=== PATIENT | female | born 1940 | race Caucasian/White ===

== ENCOUNTER 2024-05-02 15:49 | Inpatient (IN) ==
--- NOTE | 2024-05-02 16:45 | XRay Report ---
Clinical History: Pain. 4 views of the pelvis and right hip are submitted for review. Findings: There is an acute mildly displaced intertrochanteric fracture of the right femoral neck. No subluxation or dislocation is seen. No significant arthritic changes are noted. No other osseous abnormality is identified. There are no radiopaque foreign bodies. Impression: Right femoral neck fracture Electronically signed by Florian Child 05-02-2024 4:45 PM
--- NOTE | 2024-05-02 17:21 | Emergency Department Note ---
ED Provider Note History of Present Illness Chief Complaint: Fall Stated Complaint: FALL, HIP PAIN Time Seen by Provider: 05/02/24 16:04 Source: patient Mode of arrival: EMS Limitations: no limitations This patient is an 83-year-old female who presents to the emergency department for evaluation of a fall and right hip pain. Patient states that she was cleaning and tripped over a lamp cord and fell onto her right hip. She reports right hip pain and is unable to walk on it. She did not strike her head. She denies any other injuries. She does not take any anticoagulants. She reports she has had a prior right knee replacement. Home Medications Medication Instructions Recorded Confirmed Type amlodipine 5 mg tablet 5 mg PO DAILY 05/02/24 05/02/24 History rosuvastatin 5 mg tablet 5 mg PO 2XWK 05/02/24 05/02/24 History thyroid (pork) 90 mg tablet ([employer] 90 mg PO DAILY 05/02/24 05/02/24 History Thyroid) Allergies Allergy/AdvReac Type Severity Reaction Status Date / Time Opioids - Morphine Analogues AdvReac Nausea Verified 05/02/24 18:10 Past Med/Surg History Problem List (Updated 05/03/24 @ 00:36 by Ibeth Martin PA-C) Closed right hip fracture (Acute) Roderick thyroiditis Paroxysmal atrial fibrillation Hypertension Surgical History History of total right knee replacement (TKR) Social History Smoking Status: Never smoker Preferred Language: Albanian Feels Safe at Home: Yes Physical Exam Vital Signs Vital Signs - 24 hr 05/02/24 15:50 05/02/24 16:19 05/02/24 19:14 Temperature 36.6 C Temperature Source Oral Pulse Rate 68 77 Pulse Rate [Apical] 69 Pulse Rhythm [Apical] Regular Pulse Strength [Apical] Normal Respiratory Rate 16 18 Respiratory Effort / Characteristics Non-Labored Respiratory Depth Normal Respiratory Pattern Regular Blood Pressure 191/83 H Blood Pressure [Left Arm] 138/79 Blood Pressure Mean 119 Blood Pressure Mean [Left Arm] 98 Blood Pressure Position Semi-fowlers Blood Pressure Position [Left Arm] Sitting Pulse Oximetry 96 94 Oxygen Delivery Method Room Air Room Air Sepsis Recent Fever Within 48 Hours No Sepsis New/Unexplained Change in Mental Status No Sepsis Action Taken by Nursing No Action Required VITALS: Vitals are noted on the nurse's note and reviewed by myself. GENERAL: This is an 83-year-old female, in no acute distress but slightly anxious appearing. SKIN: The skin was without rashes, erythema, edema, or bruising. HEAD: Normocephalic atraumatic. EARS: External auditory canals clear, tympanic membranes pearly gibson without erythema or effusion bilaterally. No hemotympanum. EYES: Pupils equal round and reactive to light and accommodation. Extraocular movements intact. NOSE: Patent, turbinates without inflammation or discharge. No sinus tenderness. MOUTH: Mucous membranes moist. No loose or chipped teeth. NECK: Supple without nuchal rigidity. Cervical spine is nontender. MUSCULOSKELETAL: There is tenderness to palpation to the right lateral and anterior hip. No tenderness of the knee. Mild tenderness of the right upper arm. NEURO: Patient was alert and oriented to person place and time. Sensation intact. Course Administered Medications Acetaminophen (Acetaminophen 500 Mg Tab) 1,000 mg PO Q8H [facility] Stop: 06/01/24 21:59 Last Admin: 05/02/24 22:30 Dose: 1,000 mg Documented By: CAROLYNE Hydromorphone HCl (Hydromorphone Inj 0.5 Mg/0.5 Ml Syr) 0.5 mg IV Q4H PRN PRN Reason: Pain 6+ Stop: 05/16/24 22:05 Last Admin: 05/02/24 22:30 Dose: 0.5 mg Documented By: CAROLYNE Lactated Ringer's (Lr) 1,000 mls @ 100 mls/hr IV .Q10H [facility] Stop: 05/03/24 18:59 Last Admin: 05/02/24 23:05 Dose: 100 mls/hr Documented By: CAROLYNE Magnesium Sulfate/Dextrose (Magnesium Sulfate / D5w) 1 gm in 100 mls @ 50 mls/hr IV Q2H [facility] Stop: 05/03/24 02:14 Last Admin: 05/02/24 23:06 Dose: 50 mls/hr Documented By: CAROLYNE Miscellaneous (Rosuvastatin~Order Awaiting Action) 1 each N/A QS [facility] Stop: 06/01/24 21:59 Last Admin: 05/02/24 23:07 Dose: Not Given Documented By: Admin: 05/02/24 23:05 Dose: Not Given Documented By: CAROLYNE Ondansetron HCl (Ondansetron Inj 2 Mg/Ml 2 Ml Vial) 4 mg IV Q6H PRN PRN Reason: Nausea And Vomiting Stop: 06/01/24 20:59 Last Admin: 05/02/24 22:30 Dose: 4 mg Documented By: CAROLYNE Discontinued Medications Acetaminophen (Ofirmev) 1,000 mg in 100 mls @ 400 mls/hr IV NOW STA Stop: 05/02/24 18:00 Last Infusion: 05/02/24 18:13 Dose: Infused Documented By: Admin: 05/02/24 17:49 Dose: 400 mls/hr Documented By: CEF Ibuprofen (Ibuprofen 600 Mg Tab) 600 mg PO NOW STA Stop: 05/02/24 20:44 Last Admin: 05/02/24 20:56 Dose: 600 mg Documented By: JAMEEL Medical Decision Making Differential Diagnosis Fracture, dislocation, neurovascular compromise, compartment syndrome, soft tissue injury, as well as other pathologies. Laboratory Data Attestation: I reviewed the patient's lab results. 05/02/24 17:05 05/02/24 17:05 Lab Results 05/02/24 05/02/24 Range/Units 17:05 17:20 WBC 8.14 (4.8-10.8) K/ul RBC 4.33 (4.20-5.40) M/uL Hgb 13.4 (12.0-16.0) g/dl Hct 39.8 (37.0-47.0) % MCV 91.9 (80.0-100.0) fL MCH 30.9 (25.0-34.0) pg MCHC 33.7 (32.0-36.0) g/dL RDW Std Deviation 42.8 (36.4-46.3) fL RDW Coeff of Lon 12.8 (11.5-14.5) % Plt Count 250 (130-400) K/uL MPV 10.1 (9.4-12.4) fL Immature Gran % (Auto) 0.4 % Neut % (Auto) 61.6 % Lymph % (Auto) 26.9 % [place] % (Auto) 9.0 % Eos % (Auto) 1.7 % Baso % (Auto) 0.4 % Neut # (Auto) 5.02 (1.40-6.50) K/uL Lymph # (Auto) 2.19 (1.20-3.40) K/uL [place] # (Auto) 0.73 H (0.11-0.59) K/uL Eos # (Auto) 0.14 (0.00-0.50) K/uL Baso # (Auto) 0.03 (0.00-0.20) K/uL Immature Gran # (Auto) 0.03 (0.01-0.20) K/uL PT 10.9 (9.0-12.0) Seconds INR 1.0 (0.9-1.1) APTT 27 (21-31) Seconds PTT Ratio 1.0 Sodium 141 (136-145) mmol/L Potassium 3.6 (3.5-5.1) mmol/L Chloride 105 (98-107) mmol/L Carbon Dioxide 28 (21-32) mmol/L Anion Gap 8 (3-11) BUN 20 (6-23) mg/dl Creatinine 0.72 (0.6-1.2) mg/dl Est Cr Clr Drug Dosing 61.6 ml/min eGFR 83.43 BUN/Creatinine Ratio 27.8 H (10-20) Glucose 96 (70-99(Fasting)) mg/dl Calcium 9.0 (8.6-10.3) mg/dl Total Bilirubin 0.6 (0.2-1.0) mg/dl AST 25 (13-39) U/L ALT 16 (7-52) U/L Alkaline Phosphatase 53 (34-104) U/L Total Protein 7.2 (6.0-8.3) gm/dl Albumin 4.2 (3.4-5.0) gm/dl Globulin 3.0 (2.5-4.0) gm/dl Albumin/Globulin Ratio 1.4 (0.9-2) Urine Color Colorless Urine Appearance Clear (Clear) Urine pH 7.5 (4.5-7.5) Ur Specific [place] 1.010 (1.000-1.030) Urine Protein Negative (Negative) Urine Glucose (UA) Negative (Negative) Urine Ketones Negative (Negative) Urine Blood Trace-intact H (Negative) Urine Nitrite Negative (Negative) Urine Bilirubin Negative (Negative) Urine Urobilinogen Negative (Negative) Ur Leukocyte Esterase Negative (Negative) Urine RBC 0-2 (0-2) /hpf Urine WBC 0-5 (0-5) /hpf Ur Epithelial Cells 0-2 (0-2) /hpf Urine Bacteria None Seen (None Seen) Hyaline Casts 0 (None Presnt) /lpf Imaging Data Attestation: I personally reviewed and interpreted this imaging study as follows: Radiologist's Impression: Hip/Pelvis X-Ray 05/02/24 16:18 Clinical History: Pain. 4 views of the pelvis and right hip are submitted for review. Findings: There is an acute mildly displaced intertrochanteric fracture of the right femoral neck. No subluxation or dislocation is seen. No significant arthritic changes are noted. No other osseous abnormality is identified. There are no radiopaque foreign bodies. Impression: Right femoral neck fracture Electronically signed by Florian Child 05-02-2024 4:45 PM Chest X-Ray 05/02/24 16:49 Chest radiograph, one view History: Chest pain Comparison: None Findings: Single AP view of the chest performed. No focal consolidation or pleural effusion. Thin focus of scar tissue in the mid right lung. No pneumothorax. The cardiomediastinal silhouette is within normal limits. Normal pulmonary vascularity. No evidence for lymphadenopathy. No visualized bony or soft tissue abnormality. Impression: Normal chest radiograph Electronically signed by Cresencio Alcaraz 05-02-2024 5:[address] 05/02/24 17:27 Clinical history: Injury Technique: Axial computed tomography images were obtained of the right hip without intravenous contrast. Sagittal and coronal reconstructions were obtained Findings: There is an acute comminuted fracture of the intertrochanteric portion of the right femoral neck with mild displacement of fracture fragments of up to 6 mm. No subluxation or dislocation is seen. 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 No focal osseous lesion is evident The visualized musculature appears unremarkable. No soft tissue mass or fluid collection is seen. No foreign body is evident Impression: Comminuted fracture of the right femoral neck Electronically signed by Florian Child 05-02-2024 7:[address] 05/02/24 17:46 Clinical History: Injury Technique: Axial computed tomography images were obtained of the cervical spine without intravenous contrast. Sagittal and coronal reconstructions were obtained Findings: No fracture is identified. No listhesis is seen. No focal osseous lesion is evident. There is atlantoaxial osteoarthritis At C2-3, no disc herniation is identified. There is no spinal stenosis. The neural foramen are patent At C3-4, no disc herniation is identified. There is no spinal stenosis. The neural foramen are patent At C4-5, no disc herniation is identified. There is no spinal stenosis. The neural foramen are patent At C5-6, no disc herniation is identified. There is no spinal stenosis. The neural foramen are patent At C6-7, there is mild spinal stenosis due to a disc bulge and a central disc protrusion. There is mild left neural foramen narrowing At C7-T1,no disc herniation is identified. There is no spinal stenosis. The neural foramen are patent The lung apices appear clear. The visualized soft tissues of the neck appear unremarkable. No foreign body is seen Impression: 1. No definite cervical spine fracture 2. Mild spinal stenosis at C6-7 Electronically signed by Florian Child 05-02-2024 7:[address] 05/02/24 17:46 Clinical History: Injury Technique: Axial computed tomography images were obtained of the brain without intravenous contrast. Findings: There is diffuse cerebral atrophy, within expected limits for the patient's age. Areas of decreased attenuation are seen within the periventricular white matter, likely representing chronic small vessel ischemic disease. There is no definite sign of acute or old infarction. No intracranial hemorrhage is evident. No definite mass lesion is seen on this noncontrast examination. There is no midline shift or other form of herniation. No hydrocephalus is seen. No fracture is identified. The orbits and the visualized paranasal sinuses appear unremarkable. The mastoid air cells appear clear. Impression: 1. Cerebral atrophy and chronic small vessel ischemic disease 2. Otherwise unremarkable noncontrast CT of the brain Electronically signed by Florian Child 05-02-2024 7:24 PM Humerus X-Ray 05/02/24 17:46 Clinical History: Pain. 2 views of the right humerus are submitted for review. Findings: No fracture or dislocation is seen. There is mild acromioclavicular and glenohumeral osteoarthritis. No other osseous abnormality is identified. There are no radiopaque foreign bodies. Impression: Mild osteoarthritis Electronically signed by Florian Child 05-02-2024 6:28 PM [facility] Narrative This patient is an 83-year-old female who presents to the emergency department for evaluation of a fall and right hip pain. Patient found to have a femoral neck fracture on x-ray. Additional imaging was performed as patient did begin to complain of some pain in the right neck and right upper arm. No other fractures were identified. Dr. Paige from orthopedics was consulted and requested a CT of the hip. This was ordered and performed. [facility] service was contacted for admission. Impression Closed right hip fracture Discharge Plan Visit Data Chief Complaint: Fall Stated Complaint: FALL, HIP PAIN ED Provider: Aditya Mccarthy ED Midlevel Provider: Ibeth Martin Discharge Problem: Closed right hip fracture Patient Disposition: Admitted As Inpatient Discharge Instructions Interventions: ED Discharge Assessment Last Done: 05/02/24 21:00
[2024-05-02 17:26] LABS: Basophils # (auto) 0.03 K/uL (0.00-0.20); Basophils % (auto) 0.4 %; Eosinophils # (auto) 0.14 K/uL (0.00-0.50); Eosinophils % (auto) 1.7 %; Hematocrit (blood only) 39.8 % (37.0-47.0); Hemoglobin 13.4 g/dl (12.0-16.0); Immature Granulocytes # (auto) 0.03 K/uL (0.01-0.20); Immature Granulocytes % (auto) 0.4 %; Lymphocytes # (auto) 2.19 K/uL (1.20-3.40); Lymphocytes % (auto) 26.9 %; Mean Corpuscular Hemoglobin 30.9 pg (25.0-34.0); Mean Corpuscular Hgb Conc 33.7 g/dL (32.0-36.0); Mean Corpuscular Volume 91.9 fL (80.0-100.0); Mean Platelet Volume 10.1 fL (9.4-12.4); Monocytes # (auto) 0.73 K/uL (0.11-0.59); Neutrophils # (auto) 5.02 K/uL (1.40-6.50); Neutrophils % (auto) 61.6 %; Platelet Count 250 K/uL (130-400); RDW Coefficient of Variation 12.8 % (11.5-14.5); RDW Standard Deviation 42.8 fL (36.4-46.3); Red Blood Count 4.33 M/uL (4.20-5.40); White Blood Count 8.14 K/ul (4.8-10.8)
[2024-05-02 17:40] LABS: Albumin Globulin Ratio 1.4 (0.9-2); Albumin Level 4.2 gm/dl (3.4-5.0); BUN Creatinine Ratio 27.8 (10-20); Bilirubin,Total 0.6 mg/dl (0.2-1.0); Creatinine Clr Calc Pharmacy 61.6 ml/min; Potassium 3.6 mmol/L (3.5-5.1); Total Protein 7.2 gm/dl (6.0-8.3)
--- NOTE | 2024-05-02 17:40 | XRay Report ---
Chest radiograph, one view History: Chest pain Comparison: None Findings: Single AP view of the chest performed. No focal consolidation or pleural effusion. Thin focus of scar tissue in the mid right lung. No pneumothorax. The cardiomediastinal silhouette is within normal limits. Normal pulmonary vascularity. No evidence for lymphadenopathy. No visualized bony or soft tissue abnormality. Impression: Normal chest radiograph Electronically signed by Cresencio Alcaraz 05-02-2024 5:39 PM
[2024-05-02] MEDS: ACETAMINOPHEN 1,000 MG/100 ML VIAL IV STA (17:49)
[2024-05-02 17:58] LABS: Partial Thromboplastin Time 27 Seconds (21-31); Prothrombin Time 10.9 Seconds (9.0-12.0)
[2024-05-02 18:21] LABS: Appearance Urine Clear (Clear); Bilirubin Urine Negative (Negative); Blood Urine Trace-intact (Negative); Color Urine Colorless; Glucose Urine UA Negative (Negative); Ketones Urine Negative (Negative); Leukocyte Esterase Urine Negative (Negative); Nitrite Urine Negative (Negative); Protein Urine Negative (Negative); Urobilinogen Urine Negative (Negative); pH Urine 7.5 (4.5-7.5)
--- NOTE | 2024-05-02 18:28 | XRay Report ---
Clinical History: Pain. 2 views of the right humerus are submitted for review. Findings: No fracture or dislocation is seen. There is mild acromioclavicular and glenohumeral osteoarthritis. No other osseous abnormality is identified. There are no radiopaque foreign bodies. Impression: Mild osteoarthritis Electronically signed by Florian Child 05-02-2024 6:28 PM
[2024-05-02 18:44] LABS: Bacteria Urine None Seen (None Seen); Epithelial Cell Urine 0-2 /hpf (0-2); Hyaline Casts Urine 0 /lpf (None Presnt); RBC Urine 0-2 /hpf (0-2); WBC Urine 0-5 /hpf (0-5)
--- NOTE | 2024-05-02 18:49 | Emergency Department Note ---
ED Visit Note I was consulted by the Advanced Practice Provider. I personally made or approved the management plan for the patient. I performed a substantive portion of the visit. This includes the aspects of: MDM. .
--- NOTE | 2024-05-02 19:24 | CT Scan Report ---
Clinical History: Injury Technique: Axial computed tomography images were obtained of the brain without intravenous contrast. Findings: There is diffuse cerebral atrophy, within expected limits for the patient's age. Areas of decreased attenuation are seen within the periventricular white matter, likely representing chronic small vessel ischemic disease. There is no definite sign of acute or old infarction. No intracranial hemorrhage is evident. No definite mass lesion is seen on this noncontrast examination. There is no midline shift or other form of herniation. No hydrocephalus is seen. No fracture is identified. The orbits and the visualized paranasal sinuses appear unremarkable. The mastoid air cells appear clear. Impression: 1. Cerebral atrophy and chronic small vessel ischemic disease 2. Otherwise unremarkable noncontrast CT of the brain Electronically signed by Florian Child 05-02-2024 7:24 PM
--- NOTE | 2024-05-02 19:28 | CT Scan Report ---
Clinical History: Injury Technique: Axial computed tomography images were obtained of the cervical spine without intravenous contrast. Sagittal and coronal reconstructions were obtained Findings: No fracture is identified. No listhesis is seen. No focal osseous lesion is evident. There is atlantoaxial osteoarthritis At C2-3, no disc herniation is identified. There is no spinal stenosis. The neural foramen are patent At C3-4, no disc herniation is identified. There is no spinal stenosis. The neural foramen are patent At C4-5, no disc herniation is identified. There is no spinal stenosis. The neural foramen are patent At C5-6, no disc herniation is identified. There is no spinal stenosis. The neural foramen are patent At C6-7, there is mild spinal stenosis due to a disc bulge and a central disc protrusion. There is mild left neural foramen narrowing At C7-T1,no disc herniation is identified. There is no spinal stenosis. The neural foramen are patent The lung apices appear clear. The visualized soft tissues of the neck appear unremarkable. No foreign body is seen Impression: 1. No definite cervical spine fracture 2. Mild spinal stenosis at C6-7 Electronically signed by Florian Child 05-02-2024 7:27 PM
--- NOTE | 2024-05-02 19:38 | CT Scan Report ---
Clinical history: Injury Technique: Axial computed tomography images were obtained of the right hip without intravenous contrast. Sagittal and coronal reconstructions were obtained Findings: There is an acute comminuted fracture of the intertrochanteric portion of the right femoral neck with mild displacement of fracture fragments of up to 6 mm. No subluxation or dislocation is seen. 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 No focal osseous lesion is evident The visualized musculature appears unremarkable. No soft tissue mass or fluid collection is seen. No foreign body is evident Impression: Comminuted fracture of the right femoral neck Electronically signed by Florian Child 05-02-2024 7:37 PM
--- NOTE | 2024-05-02 20:08 | History & Physical Report ---
Date of Service May 02, 2024 Assessment & Plan (1) Closed right hip fracture: (2) Hypertension: (3) Roderick thyroiditis: (4) Paroxysmal atrial fibrillation: Plan 83yo female with history of HTN, Roderick thyroiditis and PAF presenting after a ground level fall resulting in right femoral neck fracture. Patient is neurovascularly intact, pain is well controlled. #Closed right hip fracture -Admit to medical -Maintain NPO after midnight -Neurovascular checks q 4 hours -Maintain Lam catheter -LR at 100mL/hr x 2L -Pain control with Tylenol 1gm PO TID and Ibuprofen PRN Patient reports an adverse effect to opioids, specifically oxycodone. Will try to avoid if able -Dilaudid PRN -Dulcolax PRN -Zofran PRN -Narcan PRN -Orthopedic surgery consultation appreciated #Hypertension - blood pressure well controlled -Continue Amlodipine #Roderick thyroiditis -Continue Thyroid tablet 90mg daily F/E/N - LR at 100mL/hr x 2L, electrolytes WNL, NPO after midnight Ppx - SCDs Code - Full per discussion with patient Dispo -Admit to medical History of Present Illness Chief Complaint: fall, right hip fracture Primary Care Provider: DANDRE JOLLY [place] Barbosa is a pleasant 83yo female with history of HTN, Roderick's thyroiditis and PAF not on anticoagulation presenting after a ground level fall at home resulting in a right femoral neck fracture. Patient is from [place] and is in town visiting her son. She was cleaning in the home today when she became tangled in a lamp cord and fell onto her right side. She had pain in her right hip and groin. She was able to contact her son and was helped off the ground within 5 minutes. She denies head trauma, LOC, no chest pain, palpitations or dizziness. Presently she is having discomfort with movement but feels fairly comfortable whilst laying still. In the ER she is afebrile, HD stable, NAD ER Course: Tylenol 1gm Ibuprofen 400mg Allergies Allergy/AdvReac Type Severity Reaction Status Date / Time Opioids - Morphine Analogues AdvReac Nausea Verified 05/02/24 18:10 Home Medications Medication Instructions Recorded Confirmed Type amlodipine 5 mg tablet 5 mg PO DAILY 05/02/24 05/02/24 History rosuvastatin 5 mg tablet 5 mg PO 2XWK 05/02/24 05/02/24 History thyroid (pork) 90 mg tablet (SCIENTIFIC GLASS BLOWER 90 mg PO DAILY 05/02/24 05/02/24 History Thyroid) Past Med/Surg History Problem List (Updated 05/02/24 @ 21:31 by Lizabeth Roberson DO) Closed right hip fracture Roderick thyroiditis Paroxysmal atrial fibrillation Hypertension Surgical History History of total right knee replacement (TKR) Social History Smoking Status: Never smoker Preferred Language: Hungarian Feels Safe at Home: Yes Review of Systems Review of Systems: All systems reviewed & are unremarkable except as noted in HPI & below Physical Exam Physical Exam: General: patient resting comfortably, NAD, non-toxic in appearance, AA&O x 4 Skin: warm, dry, intact, no rashes or lesions HEENT: NC/AT, PERRL, EOMI, anicteric sclera, conjunctiva without injection, external ear normal to inspection and nontender, nares patent, moist mucus membranes, dentition intact, no oropharyngeal lesions, neck supple, trachea midline, no LAD, no thyromegaly, no JVD Heart: +S1/S2, regular, no m/r/g Lungs: equal air entry bilaterally, no rales/rhonchi/wheezes Abd: +BS, soft, NT/ND, no masses/organomegaly/ascites Ext: warm, 2+ pulses in UE/LE bilaterally, no clubbing/cyanosis or edema Neuro: nonfocal, patient AA&O x 4, speech intact, no facial droop, moving all extremities on command with equal strength 5/5 Results & Data Results & Data Vital Signs (Past 12 Hours) Vital Signs Temp Pulse Pulse Resp BP BP Pulse Ox 05/02/24 19:14 69 18 138/79 94 05/02/24 16:19 77 05/02/24 15:50 36.6 C 68 16 191/83 H 96 O2 Del Method 05/02/24 19:14 Room Air 05/02/24 16:19 05/02/24 15:50 Room Air Laboratory Results Laboratory Results WBC 8.14 K/ul (4.8-10.8) 05/02/24 17:05 RBC 4.33 M/uL (4.20-5.40) 05/02/24 17:05 Hgb 13.4 g/dl (12.0-16.0) 05/02/24 17:05 Hct 39.8 % (37.0-47.0) 05/02/24 17:05 MCV 91.9 fL (80.0-100.0) 05/02/24 17:05 MCH 30.9 pg (25.0-34.0) 05/02/24 17:05 MCHC 33.7 g/dL (32.0-36.0) 05/02/24 17:05 RDW Std Deviation 42.8 fL (36.4-46.3) 05/02/24 17:05 RDW Coeff of Lon 12.8 % (11.5-14.5) 05/02/24 17:05 Plt Count 250 K/uL (130-400) 05/02/24 17:05 MPV 10.1 fL (9.4-12.4) 05/02/24 17:05 Immature Gran % (Auto) 0.4 % 05/02/24 17:05 Neut % (Auto) 61.6 % 05/02/24 17:05 Lymph % (Auto) 26.9 % 05/02/24 17:05 [place] % (Auto) 9.0 % 05/02/24 17:05 Eos % (Auto) 1.7 % 05/02/24 17:05 Baso % (Auto) 0.4 % 05/02/24 17:05 Neut # (Auto) 5.02 K/uL (1.40-6.50) 05/02/24 17:05 Lymph # (Auto) 2.19 K/uL (1.20-3.40) 05/02/24 17:05 [place] # (Auto) 0.73 K/uL (0.11-0.59) H 05/02/24 17:05 Eos # (Auto) 0.14 K/uL (0.00-0.50) 05/02/24 17:05 Baso # (Auto) 0.03 K/uL (0.00-0.20) 05/02/24 17:05 Immature Gran # (Auto) 0.03 K/uL (0.01-0.20) 05/02/24 17:05 PT 10.9 Seconds (9.0-12.0) 05/02/24 17:05 INR 1.0 (0.9-1.1) 05/02/24 17:05 APTT 27 Seconds (21-31) 05/02/24 17:05 PTT Ratio 1.0 05/02/24 17:05 Sodium 141 mmol/L (136-145) 05/02/24 17:05 Potassium 3.6 mmol/L (3.5-5.1) 05/02/24 17:05 Chloride 105 mmol/L (98-107) 05/02/24 17:05 Carbon Dioxide 28 mmol/L (21-32) 05/02/24 17:05 Anion Gap 8 (3-11) 05/02/24 17:05 BUN 20 mg/dl (6-23) 05/02/24 17:05 Creatinine 0.72 mg/dl (0.6-1.2) 05/02/24 17:05 Est Cr Clr Drug Dosing 61.6 ml/min 05/02/24 17:05 eGFR 83.43 05/02/24 17:05 BUN/Creatinine Ratio 27.8 (10-20) H 05/02/24 17:05 Glucose 96 mg/dl (70-99(Fasting)) 05/02/24 17:05 Calcium 9.0 mg/dl (8.6-10.3) 05/02/24 17:05 Total Bilirubin 0.6 mg/dl (0.2-1.0) 05/02/24 17:05 AST 25 U/L (13-39) 05/02/24 17:05 ALT 16 U/L (7-52) 05/02/24 17:05 Alkaline Phosphatase 53 U/L (34-104) 05/02/24 17:05 Total Protein 7.2 gm/dl (6.0-8.3) 05/02/24 17:05 Albumin 4.2 gm/dl (3.4-5.0) 05/02/24 17:05 Globulin 3.0 gm/dl (2.5-4.0) 05/02/24 17:05 Albumin/Globulin Ratio 1.4 (0.9-2) 05/02/24 17:05 Urine Color Colorless 05/02/24 17:20 Urine Appearance Clear (Clear) 05/02/24 17:20 Urine pH 7.5 (4.5-7.5) 05/02/24 17:20 Ur Specific [place] 1.010 (1.000-1.030) 05/02/24 17:20 Urine Protein Negative (Negative) 05/02/24 17:20 Urine Glucose (UA) Negative (Negative) 05/02/24 17:20 Urine Ketones Negative (Negative) 05/02/24 17:20 Urine Blood Trace-intact (Negative) H 05/02/24 17:20 Urine Nitrite Negative (Negative) 05/02/24 17:20 Urine Bilirubin Negative (Negative) 05/02/24 17:20 Urine Urobilinogen Negative (Negative) 05/02/24 17:20 Ur Leukocyte Esterase Negative (Negative) 05/02/24 17:20 Urine RBC 0-2 /hpf (0-2) 05/02/24 17:20 Urine WBC 0-5 /hpf (0-5) 05/02/24 17:20 Ur Epithelial Cells 0-2 /hpf (0-2) 05/02/24 17:20 Urine Bacteria None Seen (None Seen) 05/02/24 17:20 Hyaline Casts 0 /lpf (None Presnt) 05/02/24 17:20 Impressions Hip/Pelvis X-Ray 05/02/24 16:18 Clinical History: Pain. 4 views of the pelvis and right hip are submitted for review. Findings: There is an acute mildly displaced intertrochanteric fracture of the right femoral neck. No subluxation or dislocation is seen. No significant arthritic changes are noted. No other osseous abnormality is identified. There are no radiopaque foreign bodies. Impression: Right femoral neck fracture Electronically signed by Florian Child 05-02-2024 4:45 PM Chest X-Ray 05/02/24 16:49 Chest radiograph, one view History: Chest pain Comparison: None Findings: Single AP view of the chest performed. No focal consolidation or pleural effusion. Thin focus of scar tissue in the mid right lung. No pneumothorax. The cardiomediastinal silhouette is within normal limits. Normal pulmonary vascularity. No evidence for lymphadenopathy. No visualized bony or soft tissue abnormality. Impression: Normal chest radiograph Electronically signed by Cresencio Alcaraz 05-02-2024 5:[address] 05/02/24 17:27 Clinical history: Injury Technique: Axial computed tomography images were obtained of the right hip without intravenous contrast. Sagittal and coronal reconstructions were obtained Findings: There is an acute comminuted fracture of the intertrochanteric portion of the right femoral neck with mild displacement of fracture fragments of up to 6 mm. No subluxation or dislocation is seen. 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 No focal osseous lesion is evident The visualized musculature appears unremarkable. No soft tissue mass or fluid collection is seen. No foreign body is evident Impression: Comminuted fracture of the right femoral neck Electronically signed by Florian Child 05-02-2024 7:[address] 05/02/24 17:46 Clinical History: Injury Technique: Axial computed tomography images were obtained of the cervical spine without intravenous contrast. Sagittal and coronal reconstructions were obtained Findings: No fracture is identified. No listhesis is seen. No focal osseous lesion is evident. There is atlantoaxial osteoarthritis At C2-3, no disc herniation is identified. There is no spinal stenosis. The neural foramen are patent At C3-4, no disc herniation is identified. There is no spinal stenosis. The neural foramen are patent At C4-5, no disc herniation is identified. There is no spinal stenosis. The neural foramen are patent At C5-6, no disc herniation is identified. There is no spinal stenosis. The neural foramen are patent At C6-7, there is mild spinal stenosis due to a disc bulge and a central disc protrusion. There is mild left neural foramen narrowing At C7-T1,no disc herniation is identified. There is no spinal stenosis. The neural foramen are patent The lung apices appear clear. The visualized soft tissues of the neck appear unremarkable. No foreign body is seen Impression: 1. No definite cervical spine fracture 2. Mild spinal stenosis at C6-7 Electronically signed by Florian Child 05-02-2024 7:[address] 05/02/24 17:46 Clinical History: Injury Technique: Axial computed tomography images were obtained of the brain without intravenous contrast. Findings: There is diffuse cerebral atrophy, within expected limits for the patient's age. Areas of decreased attenuation are seen within the periventricular white matter, likely representing chronic small vessel ischemic disease. There is no definite sign of acute or old infarction. No intracranial hemorrhage is evident. No definite mass lesion is seen on this noncontrast examination. There is no midline shift or other form of herniation. No hydrocephalus is seen. No fracture is identified. The orbits and the visualized paranasal sinuses appear unremarkable. The mastoid air cells appear clear. Impression: 1. Cerebral atrophy and chronic small vessel ischemic disease 2. Otherwise unremarkable noncontrast CT of the brain Electronically signed by Florian Child 05-02-2024 7:24 PM Humerus X-Ray 05/02/24 17:46 Clinical History: Pain. 2 views of the right humerus are submitted for review. Findings: No fracture or dislocation is seen. There is mild acromioclavicular and glenohumeral osteoarthritis. No other osseous abnormality is identified. There are no radiopaque foreign bodies. Impression: Mild osteoarthritis Electronically signed by Florian Child 05-02-2024 6:28 PM PG Care Time/CCT Total # of Minutes Spent Total Time Spent with Patient: Total time spent is greater than 50% in coordination of care (as documented) at patient's floor/unit and/or counseling patient: Coding Level of Care Code 14808 INT INP/OBS CARE 3/75MIN Diagnoses Closed right hip fracture S72.001A Hypertension I10 Roderick thyroiditis E06.3 Paroxysmal atrial fibrillation I48.0
[2024-05-02] MEDS: IBUPROFEN 600 MG TAB PO STA (20:56)
[2024-05-02] MEDS ORDERED: bisacodyL 10 MG SUPP PR PRN (21:00)
[2024-05-02] MEDS ORDERED: MAGNESIUM HYDROXIDE SUSP 30 ML UDC PO PRN (21:00)
[2024-05-02] MEDS ORDERED: NALOXONE HCL 0.4 MG/1 ML VIAL/CARP IV PRN (21:00)
[2024-05-02] MEDS: ACETAMINOPHEN 500 MG TAB PO SCH (22:30)
[2024-05-02] MEDS: HYDROmorphone INJ 0.5 MG/0.5 ML SYR IV PRN (22:30)
[2024-05-02] MEDS: ONDANSETRON INJ 2 MG/ML 2 ML VIAL IV PRN (22:30)
[2024-05-02] MEDS: LACTATED RINGER'S 1,000 ML IV SCH (23:05)
[2024-05-02] MEDS: MAGNESIUM SULFATE / D5W 1 GM/100 ML BAG IV SCH (23:06)
--- NOTE | 2024-05-02 23:42 | XRay Report ---
Exam(s): XR RIGHT KNEE, 1-2 views EXAM: XR Right Knee, 1 or 2 Views CLINICAL HISTORY: s/p fall on right side, h/o TKR. TECHNIQUE: Frontal and/or lateral views of the right knee. COMPARISON: No relevant prior studies available. FINDINGS: Bones/joints: A right total knee arthroplasty is identified. The distal femoral and proximal tibial components are well seated without periprosthetic fracture or loosening. No acute osseous abnormality. No abnormal alignment. Soft tissues: No significant soft tissue abnormality identified radiographically. IMPRESSION: Right total knee arthroplasty incidentally noted. No acute osseous traumatic injury or abnormal alignment involving the right knee. Electronically signed by: Edmundo Enrique MD 05/02/24 23:41 PM
[2024-05-03] MEDS: IBUPROFEN 200 MG TAB PO PRN (01:11)
[2024-05-03 06:37] LABS: Hematocrit (blood only) 38.1 % (37.0-47.0); Hemoglobin 12.8 g/dl (12.0-16.0); Mean Corpuscular Hemoglobin 31.1 pg (25.0-34.0); Mean Corpuscular Hgb Conc 33.6 g/dL (32.0-36.0); Mean Corpuscular Volume 92.5 fL (80.0-100.0); Platelet Count 223 K/uL (130-400); RDW Standard Deviation 43.9 fL (36.4-46.3); Red Blood Count 4.12 M/uL (4.20-5.40); White Blood Count 7.57 K/ul (4.8-10.8)
[2024-05-03 06:55] LABS: Calcium 8.2 mg/dl (8.6-10.3); Potassium 3.8 mmol/L (3.5-5.1)
[2024-05-03 07:01] LABS: BUN Creatinine Ratio 27.1 (10-20); Creatinine Clr Calc Pharmacy 74.4 ml/min
--- NOTE | 2024-05-03 07:14 | Orthopedic Consultation ---
<Statement entered by Jone Paige MD - 05/03/24 16:43> Case was discussed with PA. Chart and note reviewed. CT scan was obtained to ensure the femoral neck was intact. Fracture pattern was amendable to cephalomedullary nail stabilization. Patient was prepped and scheduled for TFN. May turnover to Dr. Cardenas for expediency/availability based on today's schedule. Date of Service May 03, 2024 Assessment & Plan (1) Closed right hip fracture: NPO. Plan for surgery today (TFN), with Dr. Paige. Procedure explained with her including benefits of fixation. She wants to proceed with surgery for this. She is visiting her son from [place] and will need a rehab stay post op. Xrays of the right humerus reviewed and show some mild arthritis, no acute findings/fracture. This can be followed and managed as needed in the outpatient setting. Xrays of the knee shows previous tka, no fx. Discussed with Dr Paige. History of Present Illness Reason for Consultation: . Requesting Physician: . Attending Physician: Mahesh Mims MD, PhD .83 year old patient admitted last night with a right intertroch fx. She is from [place] and visiting her son here. She was cleaning yesterday and tripped over a cord, landing on her right side. She was able to call her son on her phone. Denies any hip pain prior to falling. She is having some right shoulder pain but seems improved today. Allergies Allergy/AdvReac Type Severity Reaction Status Date / Time Opioids - Morphine Analogues AdvReac Nausea Verified 05/02/24 18:10 Home Medications Medication Instructions Recorded Confirmed Type amlodipine 5 mg tablet 5 mg PO DAILY 05/02/24 05/02/24 History rosuvastatin 5 mg tablet 5 mg PO 2XWK 05/02/24 05/02/24 History thyroid (pork) 90 mg tablet (FACING SLITTER 90 mg PO DAILY 05/02/24 05/02/24 History Thyroid) Past Med/Surg History Problem List Closed right hip fracture (Acute) Roderick thyroiditis Paroxysmal atrial fibrillation Hypertension Surgical History History of total right knee replacement (TKR) Social History Smoking Status: Never smoker Second Hand Exposure: No; Do You Dip or Chew Tobacco: No; Hx Alcohol Use: No Hx Substance Use: No Preferred Language: Haitian Communication Ability: Effective Live Truck Technician Required: No Beliefs That Will Affect Care: None Current Living Situation: Significant Other Current Living Situation Comment: pt is visiting from [place] Feels Safe at Home: Yes Safety Concerns: Feels Safe At This Time Assistive Devices: Walker Review of Systems All systems reviewed & are unremarkable except as noted in HPI & below. Physical Exam .alert and oriented. VSS Right arm: able to actively elevate her arm past shoulder with forward flexion. No obvious swelling. No pain with elbow or wrist range of motion Right leg: No range of motion of the hip done at this time due to pain. She can dorsiflex and plantarflex. Slightly externally rotated. Has a scar on her knee from previous tka. NVI Results & Data Results & Data Laboratory Results . Diagnostic Findings . PG Care Time/CCT Total # of Minutes Spent Total Time Spent with Patient: Total time spent is greater than 50% in coordination of care (as documented) at patient's floor/unit and/or counseling patient: Coding Level of Care Code 05072 IN/OBS CONSULT LVL 4,60M (57 - DECISION FOR SURGERY) Diagnoses Closed right hip fracture S72.001A
[2024-05-03] MEDS: ARMOUR THYROID 30 MG TAB PO SCH (07:30)
[2024-05-03] MEDS ORDERED: Nursing to Pharmacy Communication SCH ×2 (07:45→10:00)
--- NOTE | 2024-05-03 08:14 | Electrocardiogram Report ---
Test Reason : Blood Pressure : */* mmHG Vent. Rate : 69 BPM Atrial Rate : 69 BPM P-R Int : 176 ms QRS Dur : 134 ms QT Int : 458 ms P-R-T Axes : * -13 -9 degrees QTcB Int : 490 ms Normal sinus rhythm Right bundle branch block Abnormal ECG No previous ECGs available Confirmed by Jacob Sweet ([id number]) on 05/03/2024 8:14:02 AM Referred By: REFERRED SELF Confirmed By: Jacob Sweet
[2024-05-03] MEDS: amLODIPine BESYLATE 5 MG TAB PO SCH (09:08)
--- NOTE | 2024-05-03 14:18 | Anesthesiology Consultation ---
Date of Service May 03, 2024 Assessment & Plan Chart Review Chart Review: Acceptable Risk for Surgery and Patient NOT seen in Pre Admission Testing Consults Requested none History Surgery Operation Date: 05/03/24 11:15 Proposed Procedures p Right Long Troch Nail - Jone Paige MD Height/Weight Height: 5 ft 6 in Weight: 71.3 kg Allergies Allergy/AdvReac Type Severity Reaction Status Date / Time Opioids - Morphine Analogues AdvReac Nausea Verified 05/02/24 18:10 Medications Home Medications Medication Instructions Recorded Confirmed Last Taken amlodipine 5 mg tablet 5 mg PO DAILY 05/02/24 05/02/24 Unknown rosuvastatin 5 mg tablet 5 mg PO 2XWK 05/02/24 05/02/24 Unknown thyroid (pork) 90 mg tablet (CARE SERVICES MANAGER 90 mg PO DAILY 05/02/24 05/02/24 Unknown Thyroid) Active Medications Generic Name Dose Route Start Last Admin Trade Name Freq PRN Reason Stop Dose Admin Acetaminophen 1,000 mg 05/02/24 22:00 05/03/24 13:49 Acetaminophen 500 Mg Tab PO 06/01/24 21:59 1,000 mg Q8H NATALIE Administration Hydromorphone HCl 0.5 mg 05/02/24 22:06 05/03/24 12:49 Hydromorphone Inj 0.5 Mg/0.5 Ml Syr IV 05/16/24 22:05 0.5 mg Q4H PRN Administration Pain 6+ Lactated Ringer's 1,000 mls @ 100 mls/hr 05/02/24 23:00 05/03/24 09:07 Lr IV 05/03/24 18:59 100 mls/hr .Q10H NATALIE Administration Ibuprofen 400 mg 05/02/24 21:00 05/03/24 01:11 Ibuprofen 200 Mg Tab PO 06/01/24 20:59 400 mg Q6H PRN Administration Pain & Pre PT Ondansetron HCl 4 mg 05/02/24 21:00 05/02/24 22:30 Ondansetron Inj 2 Mg/Ml 2 Ml Vial IV 06/01/24 20:59 4 mg Q6H PRN Administration Nausea And Vomiting Thyroid 90 mg 05/03/24 09:00 05/03/24 07:30 [place] Thyroid 30 Mg Tab PO 06/02/24 08:59 90 mg DAILY NATALIE Administration Past Surgical History Surgical History History of total right knee replacement (TKR) Social History Smoking Status: Never smoker Do You Dip or Chew Tobacco: No Hx Alcohol Use: No Hx Substance Use: No substance use type: does not use Physical Exam Vital Signs Last Vital Signs Temp 36.4 C L 05/03/24 07:07 Pulse 64 05/03/24 07:07 Resp 16 05/03/24 07:07 BP 136/75 05/03/24 07:07 Pulse Ox 93 05/03/24 07:07 O2 Del Method Room Air 05/03/24 07:07 Testing Laboratory Results 05/03/24 05:45 05/03/24 05:45 PT 10.9 Seconds (9.0-12.0) 05/02/24 17:05 INR 1.0 (0.9-1.1) 05/02/24 17:05 APTT 27 Seconds (21-31) 05/02/24 17:05 Urine Color Colorless 05/02/24 17:20 Urine Appearance Clear (Clear) 05/02/24 17:20 Urine pH 7.5 (4.5-7.5) 05/02/24 17:20 Ur Specific [place] 1.010 (1.000-1.030) 05/02/24 17:20 Urine Protein Negative (Negative) 05/02/24 17:20 Urine Glucose (UA) Negative (Negative) 05/02/24 17:20 Urine Ketones Negative (Negative) 05/02/24 17:20 Urine Nitrite Negative (Negative) 05/02/24 17:20 Ur Leukocyte Esterase Negative (Negative) 05/02/24 17:20 Urine RBC 0-2 /hpf (0-2) 05/02/24 17:20 Urine WBC 0-5 /hpf (0-5) 05/02/24 17:20 Ur Epithelial Cells 0-2 /hpf (0-2) 05/02/24 17:20
[2024-05-03] MEDS ORDERED: ONDANSETRON INJ 2 MG/ML 2 ML VIAL ONE (14:27)
[2024-05-03] MEDS ORDERED: LIDOCAINE 2% 2 ML VIAL/AMP(20MG/ML) INFIL ONE (14:27)
[2024-05-03] MEDS ORDERED: DEXAMETHASONE SOD INJ 4 MG/ML VIAL ONE (14:27)
[2024-05-03] MEDS ORDERED: PROPOFOL IV EMULSION 10 MG/ML 20 ML VIAL IV ONE (14:27)
[2024-05-03] MEDS ORDERED: ROCURONIUM BROMIDE 10 MG/ML 5 ML VIAL IV ONE (14:27)
[2024-05-03] MEDS ORDERED: fentaNYL citrate PF 100 MCG/2 ML VIAL ONE (14:38)
--- NOTE | 2024-05-03 14:40 | History & Physical Bridge Note ---
Date of Service May 03, 2024 History & Physical Bridge Note I have examined the patient, reviewed the History & Physical and in the interval since the performance of the History & Physical I have noted the following changes of clinical significance: no changes noted
[2024-05-03] MEDS: ceFAZolin 2000MG 2,000 MG/15 ML SYR IV ONE (14:58)
[2024-05-03] MEDS: TRANEXAMIC ACID / 0.7% NACL 1,000 MG/100 ML BAG IV ONE (14:58)
[2024-05-03] MEDS ORDERED: PHENYLEPHRINE 100MCG/ML 5ML SYR ONE (15:25)
[2024-05-03] MEDS ORDERED: ePHEDrine sulfate 50 MG/ML AMP ONE (15:25)
[2024-05-03] MEDS ORDERED: SUGAMMADEX SODIUM 200 MG/2 ML VIAL IV ONE (15:47)
[2024-05-03] MEDS: BUPIVACAINE/EPINEPHRINE 0.5% MPF 1:200,000 30 ML VIAL ONE (15:50)
--- NOTE | 2024-05-03 15:59 | Operative Report ---
PG Post Operative Report Pre & Post Diagnosis Operation Date: 05/03/24 11:15 Pre-Op Diagnosis: Right femoral neck fracture Post-Op Diagnosis: Right femoral neck fracture I identified the patient and participated in the time-out.: Yes Procedure Operation Date: 05/03/24 11:15 Actual Procedures p Right short Troch Nail(Right) - Geo Cardenas DO Surgeon Geo Cardenas DO Paper Making Machine Operator Shon Andres PA-C Estimated Blood Loss 20 Findings Consistent with Post-Op Diagnosis Specimens None Description of Procedure On May 03, 2024 [place] was brought out from the hospital room to the preoperative holding area. The operative extremity identified and signed. She was given a preoperative antibiotic. She is taken back the operative room and placed under general anesthesia. She was then transferred to the fracture table. Fluoroscopic imaging was used to get an anatomic reduction of the fracture. The right hip was then prepped and draped sterile fashion. A timeout was done. The patient and the operative extremity was properly identified. A longitudinal incision was made just superior to the greater trochanter. Dissection was taken down through the fascia. A guidepin was then placed at the tip of the greater trochanter. The guidepin was then placed down into the femoral canal. Appropriate placement was checked on fluoroscopy. A 16mm opening reamer was used to open up the canal. An 11 mm Synthes short TFN nail was then impacted into place. A small lateral incision was made for the cannula for the helical blade. A cannula was advanced to the lateral cortex. A guidepin was placed in the center center position of the femoral head. The lateral cortex was then drilled. The helical blade was then drilled. The final helical blade was then impacted in the place. The fracture was compressed and the helical blade was locked. A single distal locking screw was then placed. The outrigger was then removed. Final fluoroscopic images showed anatomic reduction of the fracture. Though incisions were then irrigated. The deep fascia was closed with #1 Vicryl. Skin was closed with 2-0 Vicryl and gladys. She was then placed in a soft dressing. She was then extubated and transferred back to a hospital bed. She was taken to the postanesthesia care unit in stable condition. She tolerated the procedure well. Shon Andres PA-C, was present for the entire procedure. He was critical for patient positioning, prepping, draping, retraction exposure, wound closure and application of sterile dressing. I attest to the content of the Intraoperative Record and any orders documented therein. Any exceptions are noted below.
[2024-05-03] MEDS ORDERED: ATROPINE SULFATE 0.1 MG/ML 10ML SYR IV PRN (16:29)
[2024-05-03] MEDS ORDERED: fentaNYL citrate PF 100 MCG/2 ML VIAL IV PRN (16:29)
[2024-05-03] MEDS ORDERED: ePHEDrine sulfate 50 MG/ML AMP IV PRN (16:29)
[2024-05-03] MEDS: ONDANSETRON INJ 2 MG/ML 2 ML VIAL IV PRN (16:43)
--- NOTE | 2024-05-03 18:05 | Anesthesiology Progress Note ---
Date of Service May 03, 2024 Anesthesia Post Procedure Vital Signs Vital Signs: Temp Pulse Pulse Pulse Resp BP Pulse Ox 05/03/24 17:49 36.5 C 78 16 120/62 98 05/03/24 17:33 05/03/24 17:19 36.8 C 79 16 143/78 H 92 05/03/24 17:10 36.6 C 81 17 139/72 94 05/03/24 17:00 83 20 149/69 H 94 05/03/24 16:50 84 20 159/76 H 92 05/03/24 16:40 85 19 153/88 H 92 05/03/24 16:30 80 15 142/74 H 99 05/03/24 16:20 82 16 144/81 H 100 05/03/24 16:11 36.5 C 87 18 146/78 H 99 05/03/24 14:41 36.5 C 72 18 147/76 H 91 05/03/24 07:07 36.4 C L 64 16 136/75 93 05/02/24 22:15 05/02/24 22:00 36.6 C 73 20 116/86 97 05/02/24 22:00 36.6 C 73 20 116/86 97 05/02/24 20:32 70 05/02/24 19:14 69 18 138/79 94 O2 Del Method O2 Flow Rate 05/03/24 17:49 Nasal Cannula 2 05/03/24 17:33 Nasal Cannula 2 05/03/24 17:19 Room Air 05/03/24 17:10 Room Air 0 05/03/24 17:00 Room Air 0 05/03/24 16:50 Room Air 0 05/03/24 16:40 Room Air 0 05/03/24 16:30 Oxymask 4 05/03/24 16:20 Oxymask 8 05/03/24 16:11 Oxymask 8 05/03/24 14:41 Room Air 05/03/24 07:07 Room Air 05/02/24 22:15 Room Air 05/02/24 22:00 Room Air 05/02/24 22:00 Room Air 05/02/24 20:32 05/02/24 19:14 Room Air Pain Intensity Right Hip: Pain Intensity: 5 Right Shoulder: Pain Intensity: 2 Transfer of Care Handoff Completed per policy Notes Mental Status: alert / awake / arousable Patient Amnestic to Procedure: Yes Nausea / Vomiting: adequately controlled Pain: adequately controlled Airway Patency, RR, SpO2: stable & adequate BP & HR: stable & adequate Hydration State: stable & adequate Anesthetic Complications: no major complications apparent
--- NOTE | 2024-05-03 18:57 | Hospitalist Progress Note ---
Date of Service May 03, 2024 Assessment & Plan (1) Closed right hip fracture: (2) Hypertension: (3) Roderick thyroiditis: (4) Paroxysmal atrial fibrillation: Plan 83 years old female with PMH of FULL CODE @ home, overweight with BMI 25.4 (height 167.6 cm; weight 71.3 kg), hyperlipidemia on rosuvastatin 5mg PO qTues and Sat @ 9:00am, HTN on amlodipine 5mg PO qhs, with history of HTN, Roderick thyroiditis, paroxysmal AFIB not on any rate-controlling or rhythm- controlling meds or long-term oral anticoagulant (e.g., eliquis, xarelto, coumadin), and Roderick thyroiditis on [place] Thyroid 90mg PO daily, who was admitted to the inpatient hospitalist service @ [facility] on 05/02/2024 with the following diagnosis: 1. Acute, comminuted fracture of the right femoral neck with 8 mm displacement (as noted on 05/02/2024, 5:27pm CT right hip without IV contrast). PLAN: 1. Await ORIF with nail with Orthopedic Surgeon Dr. Geo Cardenas on 05/03/2024, 11:15am, followed by convalescence on 05/03/2024 - 05/04/2024, followed by D/C to [facility] @ [place] on 05/05/2024. Patient will follow up with her PCP Dr. Carmencita Connolly within 7 days of hospital discharge and with her new Orthopedic Surgeon Dr. Geo Cardenas within 14 days of hospital discharge. Admission and Anticipated Discharge Date Admission Date: May 02, 2024 Subjective "My right hip hurts if I move. If I don't move, my right hip doesn't hurt. It's broken you know? When are they going to fix it? Review of Systems Constitutional: Positive for right hip pain s/p mechanical [id number] at home. Negative for antecedent/coincident fevers, chills, diaphoresis, shortness of breath, dyspnea on exertion, cough, wheeze, sore throat, hemoptysis, chest pains, palpitations, pleurisy, nausea, vomiting, diarrhea, abdominal pain, pelvic pain, hematemesis, hematochezia, melena, hematuria, dysuria, frequency, urgency, headaches, dizziness, lightheadedness, visual changes, hearing changes, weakness, syncope, travel history, sick contacts, or food/drug ingestions novel or new. All other review of systems are reported as negative by the patient on 05/03/2024. Physical Exam Constitutional: General: Comfortable, coherent, cooperative. Wide awake and alert. Not confused, lethargic, or obtunded. Patient speaks in complete, fluent, and articulate sentences without pause, interruption, cough, or wheeze. HEENT: Normocephalic, atraumatic. Pupils equally round and reactive to light. Extra-ocular muscles intact. No nystagmus, gaze paresis, anisocoria, miosis, mydriasis, hyphema, scleral injection, conjunctivitis, or pterygium. No rhinorrhea or otorrhea. No pharyngeal discharge or erythema. Neck: Supple with mild posterior neck tenderness (without hematoma/ecchymosis), no stridor, bruit, goiter, hepatojugular reflux. Jugular venous pressure is estimated to be 8 cm above the sternal angle of Juanjo, which is estimated to be 5 cm above the level of the right atrium. Lymph: No anterior/posterior cervical, supraclavicular/infraclavicular, axillary, epitrochlear, or inguinal adenopathy. Chest: Symmetric rise and fall with respirations. Lungs: Clear to auscultation and percussion. No audible expiratory wheeze, egophony, pectoriloquy, increase in tactile fremitus, or flatness/dullness to percussion at the bases. Heart: RRR, S1 and S2 noted. No S3 or S4 summation gallop noted. No tripartite friction rub. Grade II/ early systolic murmur @ LLSB without radiation to the carotids, axilla, or back, and which remains invariant in regards to the respiratory cycle. Abdomen: Soft, non-tender, non-distended. No rebound, guarding, Melgar's sign, or organomegaly. Bowel sounds sounds auscultated in all 4 quadrants. Extremities: No clubbing, cyanosis, or edema. 2+ pedal pulses bilaterally. RLE externally rotated and foreshortened in comparison to LLE. s/p right total knee arthroplasty scar well-healed. Skin: No delay in capillary refill time > 2 seconds. No decubitus ulcer, exanthem, or enanthem. Neurology: Alert and oriented to person, place, time, and situation. DTR+ and symmetric. 5/5 motor strength in all 4 extremities, both proximally and distally. No pronator drift. No facial droop. No tremors, tics, or myoclonus. Urology: No porras catheter. No urethral discharge. Psychiatry: No suicidal ideation. No homicidal ideation. Results & Data Results & Data Vital Signs (Past 12 Hours) Vital Signs Temp Pulse Pulse Resp BP Pulse Ox O2 Del Method 05/03/24 18:17 36.4 C L 84 16 125/65 99 Nasal Cannula 05/03/24 17:49 36.5 C 78 16 120/62 98 Nasal Cannula 05/03/24 17:33 Nasal Cannula 05/03/24 17:19 36.8 C 79 16 143/78 H 92 Room Air 05/03/24 17:10 36.6 C 81 17 139/72 94 Room Air 05/03/24 17:00 83 20 149/69 H 94 Room Air 05/03/24 16:50 84 20 159/76 H 92 Room Air 05/03/24 16:40 85 19 153/88 H 92 Room Air 05/03/24 16:30 80 15 142/74 H 99 Oxymask 05/03/24 16:20 82 16 144/81 H 100 Oxymask 05/03/24 16:11 36.5 C 87 18 146/78 H 99 Oxymask 05/03/24 14:41 36.5 C 72 18 147/76 H 91 Room Air 05/03/24 07:07 36.4 C L 64 16 136/75 93 Room Air O2 Flow Rate 05/03/24 18:17 2 05/03/24 17:49 2 05/03/24 17:33 2 05/03/24 17:19 05/03/24 17:10 0 05/03/24 17:00 0 05/03/24 16:50 0 05/03/24 16:40 0 05/03/24 16:30 4 05/03/24 16:20 8 05/03/24 16:11 8 05/03/24 14:41 05/03/24 07:07 Laboratory Results 05/03/24 05/03/24 17:27 05:45 WBC 7.57 RBC 4.12 L Hgb 12.8 Hct 38.1 MCV 92.5 MCH 31.1 MCHC 33.6 RDW Std Deviation 43.9 RDW Coeff of Lon 13.0 Plt Count 223 MPV 10.0 Sodium 138 Potassium 3.8 3.8 Chloride 106 Carbon Dioxide 25 Anion Gap 7 BUN 16 Creatinine 0.59 L Est Cr Clr Drug Dosing 74.4 eGFR 89.93 BUN/Creatinine Ratio 27.1 H Glucose 82 Calcium 8.2 L INR 1.0 (05/02/2024, 5:05pm). U/A (05/02/2024, 5:20pm): LE-, nitrite- WBC 0-5, RBC 0-2, epithelial cells 0-2, bacteria [address] right hip without IV contrast (05/02/2024, 5:27pm): Acute comminuted fracture of the right femoral neck with 8mm displacement. ECG Additional Comments: EKG (05/02/2024, 5:09pm): NSR @ 69, IN 176, QT 490, RBBB, no acute ST depressions/elevations (by my review). PG Care Time/CCT Total # of Minutes Spent Total Time Spent with Patient: Total time spent is greater than 50% in coordination of care (as documented) at patient's floor/unit and/or counseling patient: Coding Level of Care Code 14015 SUB INP/OBS CARE 2/35MIN Diagnoses Closed right hip fracture S72.001A Hypertension I10 Roderick thyroiditis E06.3 Paroxysmal atrial fibrillation I48.0
--- NOTE | 2024-05-03 19:59 | XRay Report ---
EXAM: XR hip RT min 2V CLINICAL HISTORY: Post-Operative implant position. TECHNIQUE: X-ray images of the right hip joint were obtained in anteroposterior (AP), and lateral projection. COMPARISON: Compared to prior hip x-ray dated 05/02/2024. FINDINGS: Pelvic Bones: Pelvic bones, including the iliac wings, ischium, pubis, and sacrum, are normal and intact. No evidence of dislocations, or significant osseous lesions. Intact dynamic hip screw at the right femur of intertrochanteric fracture.No loosening or dislocations. Hip Joints: Hip joints are normal with preserved joint spaces. No evidence of hip dislocation, subluxation, or significant degenerative changes. No osteophytes, joint space narrowing, or sclerosis noted. Acetabular structures appear normal and intact. No signs of acetabular fracture or dysplasia. Femoral heads are normal and centered within the acetabulum. No evidence of fractures, avascular necrosis, or significant deformities. Sacroiliac joints appear normal and unremarkable. No evidence of sacroiliitis or significant degenerative changes. Soft Tissues: Soft tissue swelling around hip with a few lucencies likely post-operative changes. Additional Findings: No other significant abnormalities noted. IMPRESSION: 1. Intact dynamic hip screw at the right femur of intertrochanteric fracture fixation.No loosening or mal-aligment.(new) 2. Soft tissue swelling around hip with some lucencies signifying post-operative changes with surgical clips. (new) DISCLAIMER:A subtle bone abnormality or fracture may not be readily apparent on x-rays, thus clinical correlation and further imaging including follow up CT, MRI, or follow up x-rays are advised as needed. Electronically signed by Marbella Rossi 05-03-2024 7:59 PM
[2024-05-03] MEDS: ceFAZolin 1000MG 1,000 MG/7.5 ML SYR IV SCH (21:10)
[2024-05-03] MEDS: ASPIRIN 81 MG ECTAB PO SCH (21:11)
[2024-05-03] MEDS: LORazepam 1 MG TAB PO STA (21:11)
[2024-05-04 06:20] LABS: Basophils # (auto) 0.02 K/uL (0.00-0.20); Basophils % (auto) 0.1 %; Hematocrit (blood only) 40.4 % (37.0-47.0); Hemoglobin 13.4 g/dl (12.0-16.0); Immature Granulocytes # (auto) 0.05 K/uL (0.01-0.20); Immature Granulocytes % (auto) 0.3 %; Lymphocytes # (auto) 1.19 K/uL (1.20-3.40); Lymphocytes % (auto) 7.7 %; Mean Corpuscular Hemoglobin 30.9 pg (25.0-34.0); Mean Corpuscular Hgb Conc 33.2 g/dL (32.0-36.0); Mean Corpuscular Volume 93.3 fL (80.0-100.0); Mean Platelet Volume 10.1 fL (9.4-12.4); Monocytes # (auto) 0.59 K/uL (0.11-0.59); Monocytes % (auto) 3.8 %; Neutrophils # (auto) 13.61 K/uL (1.40-6.50); Neutrophils % (auto) 88.1 %; Platelet Count 247 K/uL (130-400); RDW Coefficient of Variation 12.9 % (11.5-14.5); RDW Standard Deviation 44.2 fL (36.4-46.3); Red Blood Count 4.33 M/uL (4.20-5.40); White Blood Count 15.46 K/ul (4.8-10.8)
[2024-05-04 06:45] LABS: BUN Creatinine Ratio 26.8 (10-20); Calcium 8.4 mg/dl (8.6-10.3); Creatinine Clr Calc Pharmacy 61.8 ml/min; Potassium 4.2 mmol/L (3.5-5.1)
--- NOTE | 2024-05-04 08:00 | Fluoroscopy Report ---
FL hip RT 2-3V CLINICAL HISTORY: RIGHT TROCH NAIL COMPARISON STUDY: None FLUOROSCOPY TIME: 49 seconds FLUOROSCOPY IMAGES: 5 EXPOSURE DOSE: 13.4 mGy FINDINGS: Fluoroscopy was provided for placement of right femoral gamma needle. IMPRESSION: Intraoperative fluoroscopy. ACT 112: Negative or not required by law. Electronically signed by: Tony Grant M.D. 05/04/2024 7:58 AM
--- NOTE | 2024-05-04 08:27 | Orthopedic Progress Note ---
Date of Service May 04, 2024 Assessment & Plan (1) Closed right hip fracture: (2) Status post hip surgery: Plan 83-year-old female POD# 1 s/p closed reduction internal fixation of RIGHT intertrochanteric femur/hip fracture with short IM nail, cannulated femoral head/neck compression screw, and dynamic distal locking screw. Plan: 1. DVT prophylaxis w/ ASA 81 mg BID. 2. PT/OT as tolerated. WBAT on R LE. 3. Pain well-controlled continue current regimen. 4. Medical management as per the primary medicine service. 5. Dressing may be changed on POD#3; while inpatient, he should have the dressing covered, but when discharged, surgical wound can be left open to air. Plan for staple removal at 2-week postop check. 6. Disposition -pending PT/OT evals; planning for [facility] in [place], [place]. Eventually will transition postoperative orthopedic care to [facility] in [place], [place]. 7. Follow-up outpatient with Dr. Cardenas's team 2 to 3 weeks postop. Subjective Patient is POD# 1 s/p closed reduction internal fixation of RIGHT intertrochanteric femur/hip fracture with short IM nail, cannulated femoral head/neck compression screw, and dynamic distal locking screw by Dr. Cardenas on 05/03/2024. Patient says her pain is well-controlled this morning; she really is not having much pain at all. Denies CP, SOB, N/V, R LE paresthesia. Patient lives in [place], [place], but was visiting her son here in [place] and preparing for some family to come in from [place] when the injury occurred, and upon discussion with case management and her son, they are attempting to get her to [facility] in [place], [place] for a short-term rehab stay postoperatively. She would then plan to follow-up in [place] with [facility] for further postoperative orthopedic care, as she has previously been established with their orthopedic practice. Review of Systems All systems reviewed & are unremarkable except as noted in HPI & below. Physical Exam GENERAL: AA&Ox3, NAD. Pleasant, affect is calm. Lying in bed, eating, and appears comfortable. RESPIRATORY: Normal respiratory effort with no signs of distress. CHEST/AXILLA: Chest movement symmetrical. No deformities noted. CARDIOVASCULAR: No edema noted. SKIN: [place], warm and dry. /EXTREMITY: Hip/thigh dressing c/d/i. ADOLFO hose recently removed to take a break from them. Thigh is soft, supple. Leg lengths are equal. + ankle dorsi/plantarflexion. NVI distally. Calf soft/NT. PT/DP pulses intact, 2+. Results & Data Results & Data Laboratory Results . Laboratory Results - last 24 hr 05/03/24 05/04/24 17:27 05:47 WBC 15.46 H RBC 4.33 Hgb 13.4 Hct 40.4 MCV 93.3 MCH 30.9 MCHC 33.2 RDW Std Deviation 44.2 RDW Coeff of Lon 12.9 Plt Count 247 MPV 10.1 Immature Gran % (Auto) 0.3 Neut % (Auto) 88.1 Lymph % (Auto) 7.7 [place] % (Auto) 3.8 Eos % (Auto) 0.0 Baso % (Auto) 0.1 Neut # (Auto) 13.61 H Lymph # (Auto) 1.19 L [place] # (Auto) 0.59 Eos # (Auto) 0.00 Baso # (Auto) 0.02 Immature Gran # (Auto) 0.05 Sodium 138 Potassium 3.8 4.2 Chloride 105 Carbon Dioxide 28 Anion Gap 5 BUN 19 Creatinine 0.71 Est Cr Clr Drug Dosing 61.8 eGFR 84.84 BUN/Creatinine Ratio 26.8 H Glucose 139 H Calcium 8.4 L 25-OH Vitamin D Total 72.6 Diagnostic Findings . Hip X-Ray 05/03/24 00:00 FL hip RT 2-3V CLINICAL HISTORY: RIGHT TROCH NAIL COMPARISON STUDY: None FLUOROSCOPY TIME: 49 seconds FLUOROSCOPY IMAGES: 5 EXPOSURE DOSE: 13.4 mGy FINDINGS: Fluoroscopy was provided for placement of right femoral gamma needle. IMPRESSION: Intraoperative fluoroscopy. ACT 112: Negative or not required by law. Electronically signed by: Tony Grant M.D. 05/04/2024 7:58 AM Hip X-Ray 05/03/24 17:12 EXAM: XR hip RT min 2V CLINICAL HISTORY: Post-Operative implant position. TECHNIQUE: X-ray images of the right hip joint were obtained in anteroposterior (AP), and lateral projection. COMPARISON: Compared to prior hip x-ray dated 05/02/2024. FINDINGS: Pelvic Bones: Pelvic bones, including the iliac wings, ischium, pubis, and sacrum, are normal and intact. No evidence of dislocations, or significant osseous lesions. Intact dynamic hip screw at the right femur of intertrochanteric fracture.No loosening or dislocations. Hip Joints: Hip joints are normal with preserved joint spaces. No evidence of hip dislocation, subluxation, or significant degenerative changes. No osteophytes, joint space narrowing, or sclerosis noted. Acetabular structures appear normal and intact. No signs of acetabular fracture or dysplasia. Femoral heads are normal and centered within the acetabulum. No evidence of fractures, avascular necrosis, or significant deformities. Sacroiliac joints appear normal and unremarkable. No evidence of sacroiliitis or significant degenerative changes. Soft Tissues: Soft tissue swelling around hip with a few lucencies likely post-operative changes. Additional Findings: No other significant abnormalities noted. IMPRESSION: 1. Intact dynamic hip screw at the right femur of intertrochanteric fracture fixation.No loosening or mal-aligment.(new) 2. Soft tissue swelling around hip with some lucencies signifying post-operative changes with surgical clips. (new) DISCLAIMER:A subtle bone abnormality or fracture may not be readily apparent on x-rays, thus clinical correlation and further imaging including follow up CT, MRI, or follow up x-rays are advised as needed. Electronically signed by Marbella Rossi 05-03-2024 7:59 PM PG Care Time/CCT Total # of Minutes Spent Total Time Spent with Patient: Total time spent is greater than 50% in coordination of care (as documented) at patient's floor/unit and/or counseling patient: Coding [place] [address] Post Operative Follow-Up Patient Type Established History Expanded Problem Focused Exam Expanded Problem Focused Medical Decision Making Moderate Complexity Diagnoses Closed fracture of right hip with routine healing, subsequent encounter S72.001D Encounter type: subsequent encounter Fracture healing: with routine healing Status post hip surgery Z98.890 (1) Closed right hip fracture Encounter type: subsequent encounter Fracture healing: with routine healing Qualified Code(s): S72.001D - Fracture of unspecified part of neck of right femur, subsequent encounter for closed fracture with routine healing
[2024-05-04] MEDS: DOCUSATE SODIUM 100 MG CAP PO SCH (11:40)
--- NOTE | 2024-05-04 18:08 | Hospitalist Progress Note ---
Date of Service May 04, 2024 Assessment & Plan (1) Closed right hip fracture: (2) Hypertension: (3) Roderick thyroiditis: (4) Paroxysmal atrial fibrillation: Plan 83 years old female with PMH of FULL CODE @ home, overweight with BMI 25.4 (height 167.6 cm; weight 71.3 kg), hyperlipidemia on rosuvastatin 5mg PO qTues and Sat @ 9:00am, HTN on amlodipine 5mg PO qhs, with history of HTN, Roderick thyroiditis, paroxysmal AFIB not on any rate-controlling or rhythm- controlling meds or long-term oral anticoagulant (e.g., eliquis, xarelto, coumadin), and Roderick thyroiditis on [place] Thyroid 90mg PO daily, who was admitted to the inpatient hospitalist service @ [facility] on 05/02/2024 with the following diagnosis: 1. Acute, comminuted fracture of the right femoral neck with 8 mm displacement (as noted on 05/02/2024, 5:27pm CT right hip without IV contrast). PLAN: 1. s/p ORIF with right short trochanteric nail with Orthopedic Surgeon Dr. Geo Cardenas on 05/03/2024, 3:55pm, followed by convalescence on 05/03/2024 - 05/04/2024, followed by D/C to [facility] @ [place] on 05/05/2024. Patient will follow up with her PCP Dr. Carmencita Connolly within 7 days of hospital discharge and with her new Orthopedic Surgeon Dr. Geo Cardenas within 14 days of hospital discharge. Admission and Anticipated Discharge Date Admission Date: May 02, 2024 Subjective "I am ok. I got my right hip fixed yesterday (05/03/2024, 3:55pm, [facility] Orthopedic Surgeon Dr. Geo Cardenas, s/p R short trochanteric nail). Review of Systems Constitutional: Positive for right hip pain s/p mechanical [id number] at home. Negative for antecedent/coincident fevers, chills, diaphoresis, shortness of breath, dyspnea on exertion, cough, wheeze, sore throat, hemoptysis, chest pains, palpitations, pleurisy, nausea, vomiting, diarrhea, abdominal pain, pelvic pain, hematemesis, hematochezia, melena, hematuria, dysuria, frequency, urgency, headaches, dizziness, lightheadedness, visual changes, hearing changes, weakness, syncope, travel history, sick contacts, or food/drug ingestions novel or new. All other review of systems are reported as negative by the patient on 05/04/2024. Physical Exam Constitutional: General: Comfortable, coherent, cooperative. Wide awake and alert. Not confused, lethargic, or obtunded. Patient speaks in complete, fluent, and articulate sentences without pause, interruption, cough, or wheeze. HEENT: Normocephalic, atraumatic. Pupils equally round and reactive to light. Extra-ocular muscles intact. No nystagmus, gaze paresis, anisocoria, miosis, mydriasis, hyphema, scleral injection, conjunctivitis, or pterygium. No rhi norrhea or otorrhea. No pharyngeal discharge or erythema. Neck: Supple with mild posterior neck tenderness (without hematoma/ecchymosis), no stridor, bruit, goiter, hepatojugular reflux. Jugular venous pressure is estimated to be 8 cm above the sternal angle of Juanjo, which is estimated to be 5 cm above the level of the right atrium. Lymph: No anterior/posterior cervical, supraclavicular/infraclavicular, axillary, epitrochlear, or inguinal adenopathy. Chest: Symmetric rise and fall with respirations. Lungs: Clear to auscultation and percussion. No audible expiratory wheeze, egophony, pectoriloquy, increase in tactile fremitus, or flatness/dullness to percussion at the bases. Heart: RRR, S1 and S2 noted. No S3 or S4 summation gallop noted. No tripartite friction rub. Grade II/ early systolic murmur @ LLSB without radiation to the carotids, axilla, or back, and which remains invariant in regards to the respiratory cycle. Abdomen: Soft, non-tender, non-distended. No rebound, guarding, Melgar's sign, or organomegaly. Bowel sounds sounds auscultated in all 4 quadrants. Extremities: No clubbing, cyanosis, or edema. 2+ pedal pulses bilaterally. RLE no longer externally rotated or foreshortened in comparison to LLE on 05/04/2024, now that patient has undergone R short trochanteric nail x 1 (05/03/2024, 3:55pm, [facility] Orthopedic Surgeon Dr. Geo Cardenas). s/p right total knee arthroplasty scar well-healed. Skin: No delay in capillary refill time > 2 seconds. No decubitus ulcer, exanthem, or enanthem. Neurology: Alert and oriented to person, place, time, and situation. DTR+ and symmetric. 5/5 motor strength in all 4 extremities, both proximally and distally. No pronator drift. No facial droop. No tremors, tics, or myoclonus. Urology: No porras catheter. No urethral discharge. Psychiatry: No suicidal ideation. No homicidal ideation. Results & Data Results & Data Vital Signs (Past 12 Hours) Vital Signs Temp Pulse Pulse Resp BP Pulse Ox O2 Del Method 05/04/24 14:42 36.6 C 69 16 125/74 96 Room Air 05/04/24 12:42 36.7 C 85 16 104/70 97 Room Air 05/04/24 08:01 36.5 C 70 16 122/72 94 Room Air Laboratory Results 05/04/24 05:47 WBC 15.46 H RBC 4.33 Hgb 13.4 Hct 40.4 MCV 93.3 MCH 30.9 MCHC 33.2 RDW Std Deviation 44.2 RDW Coeff of Lon 12.9 Plt Count 247 MPV 10.1 Immature Gran % (Auto) 0.3 Neut % (Auto) 88.1 Lymph % (Auto) 7.7 [place] % (Auto) 3.8 Eos % (Auto) 0.0 Baso % (Auto) 0.1 Neut # (Auto) 13.61 H Lymph # (Auto) 1.19 L [place] # (Auto) 0.59 Eos # (Auto) 0.00 Baso # (Auto) 0.02 Immature Gran # (Auto) 0.05 Sodium 138 Potassium 4.2 Chloride 105 Carbon Dioxide 28 Anion Gap 5 BUN 19 Creatinine 0.71 Est Cr Clr Drug Dosing 61.8 eGFR 84.84 BUN/Creatinine Ratio 26.8 H Glucose 139 H Calcium 8.4 L 25-OH Vitamin D Total 72.6 PG Care Time/CCT Total # of Minutes Spent Total Time Spent with Patient: Total time spent is greater than 50% in coordination of care (as documented) at patient's floor/unit and/or counseling patient: Coding Level of Care Code 80331 SUB INP/OBS CARE 2MIN Diagnoses Closed fracture of right hip with routine healing, subsequent encounter S72.001D Encounter type: subsequent encounter Fracture healing: with routine healing Hypertension I10 Roderick thyroiditis E06.3 Paroxysmal atrial fibrillation I48.0 (1) Closed right hip fracture Encounter type: subsequent encounter Fracture healing: with routine healing Qualified Code(s): S72.001D - Fracture of unspecified part of neck of right femur, subsequent encounter for closed fracture with routine healing
[2024-05-04] MEDS ORDERED: MELATONIN 3 MG TAB PO PRN (20:41)
[2024-05-04] MEDS: LORazepam 0.5 MG TAB PO STA (20:53)
[2024-05-04] MEDS: amLODIPine BESYLATE 5 MG TAB PO SCH (20:53)
--- NOTE | 2024-05-05 08:08 | Orthopedic Progress Note ---
Date of Service May 05, 2024 Assessment & Plan (1) Status post hip surgery: Overall she is doing fairly well. She can be weightbearing as tolerated on the right hip. She has no restrictions. She is on aspirin for DVT prophylaxis. She is orthopedically stable for discharge when medically ready. Full ortho pedic discharge instructions were placed in the discharge summary. Subjective Unni was seen and examined at bedside this morning. Overall she is doing fairly well. She is having some pain in her thigh but that is to be expected. She feels a little bit weak in the thigh but she does have motion. She has been up and ambulating with therapy. She has no other complaints. Review of Systems All systems reviewed & are unremarkable except as noted in HPI & below. Physical Exam On physical exam of the right hip, the dressings are clean and dry. Her leg is out in full extension. She has active dorsiflexion plantarflexion of her right ankle.. Results & Data Results & Data Laboratory Results . Diagnostic Findings . PG Care Time/CCT Total # of Minutes Spent Total Time Spent with Patient: Total time spent is greater than 50% in coordination of care (as documented) at patient's floor/unit and/or counseling patient: Coding Level of Care Code 48984 Post Operative Follow-Up Diagnoses Status post hip surgery Z98.890
[2024-05-05 09:13] LABS: Basophils # (auto) 0.04 K/uL (0.00-0.20); Basophils % (auto) 0.3 %; Eosinophils # (auto) 0.18 K/uL (0.00-0.50); Eosinophils % (auto) 1.2 %; Hematocrit (blood only) 35.4 % (37.0-47.0); Immature Granulocytes # (auto) 0.04 K/uL (0.01-0.20); Immature Granulocytes % (auto) 0.3 %; Lymphocytes # (auto) 2.94 K/uL (1.20-3.40); Lymphocytes % (auto) 20.3 %; Mean Corpuscular Hemoglobin 32.1 pg (25.0-34.0); Mean Corpuscular Hgb Conc 33.9 g/dL (32.0-36.0); Mean Corpuscular Volume 94.7 fL (80.0-100.0); Mean Platelet Volume 10.2 fL (9.4-12.4); Monocytes # (auto) 1.05 K/uL (0.11-0.59); Monocytes % (auto) 7.2 %; Neutrophils # (auto) 10.24 K/uL (1.40-6.50); Neutrophils % (auto) 70.7 %; Platelet Count 239 K/uL (130-400); RDW Coefficient of Variation 13.2 % (11.5-14.5); RDW Standard Deviation 45.7 fL (36.4-46.3); Red Blood Count 3.74 M/uL (4.20-5.40); White Blood Count 14.49 K/ul (4.8-10.8)
[2024-05-05] MEDS ORDERED: Nursing to Pharmacy Communication SCH (10:30)
[2024-05-05] MEDS: ROSUVASTATIN CALCIUM 5 MG TAB PO SCH ×2 (13:32→21:03)
--- NOTE | 2024-05-05 15:47 | Hospitalist Progress Note ---
Date of Service May 05, 2024 Assessment & Plan (1) Closed right hip fracture: (2) Hypertension: (3) Roderick thyroiditis: (4) Paroxysmal atrial fibrillation: Plan 83 years old female with PMH of FULL CODE @ home, overweight with BMI 25.4 (height 167.6 cm; weight 71.3 kg), hyperlipidemia on rosuvastatin 5mg PO qTues and Sat @ 9:00am, HTN on amlodipine 5mg PO qhs, with history of HTN, Roderick thyroiditis, paroxysmal AFIB not on any rate-controlling or rhythm- controlling meds or long-term oral anticoagulant (e.g., eliquis, xarelto, coumadin), and Roderick thyroiditis on [place] Thyroid 90mg PO daily, who was admitted to the inpatient hospitalist service @ [facility] on 05/02/2024 with the following diagnosis: 1. Acute, comminuted fracture of the right femoral neck with 8 mm displacement (as noted on 05/02/2024, 5:27pm CT right hip without IV contrast). PLAN: 1. s/p ORIF with right short trochanteric nail with Orthopedic Surgeon Dr. Geo Cardenas on 05/03/2024, 3:55pm, followed by convalescence on 05/03/2024 - 05/04/2024, followed by D/C to [facility] @ [place] on 05/06/2024. Patient will follow up with her PCP Dr. Carmencita Connolly within 7 days of hospital discharge and with her new Orthopedic Surgeon Dr. Geo Cardenas within 14 days of hospital discharge. Admission and Anticipated Discharge Date Admission Date: May 02, 2024 Subjective "I am ok. I got my right hip fixed on (05/03/2024, 3:55pm, [facility] Orthopedic Surgeon Dr. Geo Cardenas, s/p R short trochanteric nail). Review of Systems Constitutional: Positive for right hip pain s/p mechanical [id number] at home. Negative for antecedent/coincident fevers, chills, diaphoresis, shortness of breath, dyspnea on exertion, cough, wheeze, sore throat, hemoptysis, chest pains, palpitations, pleurisy, nausea, vomiting, diarrhea, abdominal pain, pelvic pain, hematemesis, hematochezia, melena, hematuria, dysuria, frequency, urgency, headaches, dizziness, lightheadedness, visual changes, hearing changes, weakness, syncope, travel history, sick contacts, or food/drug ingestions novel or new. All other review of systems are reported as negative by the patient on 05/05/2024. Physical Exam Constitutional: General: Comfortable, coherent, cooperative. Wide awake and alert. Not confused, lethargic, or obtunded. Patient speaks in complete, fluent, and articulate sentences without pause, interruption, cough, or wheeze. HEENT: Normocephalic, atraumatic. Pupils equally round and reactive to light. Extra-ocular muscles intact. No nystagmus, gaze paresis, anisocoria, miosis, mydriasis, hyphema, scleral injection, conjunctivitis, or pterygium. No r hinorrhea or otorrhea. No pharyngeal discharge or erythema. Neck: Supple with mild posterior neck tenderness (without hematoma/ecchymosis), no stridor, bruit, goiter, hepatojugular reflux. Jugular venous pressure is estimated to be 8 cm above the sternal angle of Juanjo, which is estimated to be 5 cm above the level of the right atrium. Lymph: No anterior/posterior cervical, supraclavicular/infraclavicular, axillary, epitrochlear, or inguinal adenopathy. Chest: Symmetric rise and fall with respirations. Lungs: Clear to auscultation and percussion. No audible expiratory wheeze, egophony, pectoriloquy, increase in tactile fremitus, or flatness/dullness to percussion at the bases. Heart: RRR, S1 and S2 noted. No S3 or S4 summation gallop noted. No tripartite friction rub. Grade II/ early systolic murmur @ LLSB without radiation to the carotids, axilla, or back, and which remains invariant in regards to the respiratory cycle. Abdomen: Soft, non-tender, non-distended. No rebound, guarding, Melgar's sign, or organomegaly. Bowel sounds sounds auscultated in all 4 quadrants. Extremities: No clubbing, cyanosis, or edema. 2+ pedal pulses bilaterally. RLE no longer externally rotated or foreshortened in comparison to LLE on 05/04/2024, now that patient has undergone R short trochanteric nail x 1 (05/03/2024, 3:55pm, [facility] Orthopedic Surgeon Dr. Geo Cardenas). s/p right total knee arthroplasty scar well-healed. Skin: No delay in capillary refill time > 2 seconds. No decubitus ulcer, exanthem, or enanthem. Neurology: Alert and oriented to person, place, time, and situation. DTR+ and symmetric. 5/5 motor strength in all 4 extremities, both proximally and distally. No pronator drift. No facial droop. No tremors, tics, or myoclonus. Urology: No porras catheter. No urethral discharge. Psychiatry: No suicidal ideation. No homicidal ideation. Results & Data Results & Data Vital Signs (Past 12 Hours) Vital Signs Temp Pulse Resp BP Pulse Ox O2 Del Method 05/05/24 13:59 36.3 C L 70 18 150/73 H 97 Room Air 05/05/24 07:25 36.6 C 63 18 152/73 H 93 Room Air PG Care Time/CCT Total # of Minutes Spent Total Time Spent with Patient: Total time spent is greater than 50% in coordination of care (as documented) at patient's floor/unit and/or counseling patient: Coding Level of Care Code 87267 SUB INP/OBS CARE 2/35MIN Diagnoses Closed fracture of right hip with routine healing, subsequent encounter S72.001D Encounter type: subsequent encounter Fracture healing: with routine healing Hypertension I10 Roderick thyroiditis E06.3 Paroxysmal atrial fibrillation I48.0 (1) Closed right hip fracture Encounter type: subsequent encounter Fracture healing: with routine healing Qualified Code(s): S72.001D - Fracture of unspecified part of neck of right femur, subsequent encounter for closed fracture with routine healing
[2024-05-05] MEDS ORDERED: COUGH DROP (SUGAR FREE) LOZ 24 LOZ/1 BOX BUCCAL PRN (18:17)
[2024-05-05] MEDS: COUGH DROP (SUGAR FREE) LOZ 24 LOZ/1 BOX BUCCAL ONE (18:29)
[2024-05-06 09:58] LABS: Basophils # (auto) 0.05 K/uL (0.00-0.20); Basophils % (auto) 0.5 %; Eosinophils # (auto) 0.25 K/uL (0.00-0.50); Eosinophils % (auto) 2.3 %; Hematocrit (blood only) 38.6 % (37.0-47.0); Hemoglobin 12.8 g/dl (12.0-16.0); Immature Granulocytes # (auto) 0.04 K/uL (0.01-0.20); Immature Granulocytes % (auto) 0.4 %; Lymphocytes # (auto) 2.49 K/uL (1.20-3.40); Lymphocytes % (auto) 23.2 %; Mean Corpuscular Hemoglobin 31.2 pg (25.0-34.0); Mean Corpuscular Hgb Conc 33.2 g/dL (32.0-36.0); Mean Corpuscular Volume 94.1 fL (80.0-100.0); Mean Platelet Volume 9.9 fL (9.4-12.4); Monocytes # (auto) 1.04 K/uL (0.11-0.59); Monocytes % (auto) 9.7 %; Neutrophils # (auto) 6.87 K/uL (1.40-6.50); Neutrophils % (auto) 63.9 %; Platelet Count 261 K/uL (130-400); RDW Coefficient of Variation 13.3 % (11.5-14.5); RDW Standard Deviation 46.2 fL (36.4-46.3); White Blood Count 10.74 K/ul (4.8-10.8)
--- NOTE | 2024-05-06 15:57 | Hospitalist Progress Note ---
Date of Service May 06, 2024 Assessment & Plan (1) Closed right hip fracture: (2) Hypertension: (3) Roderick thyroiditis: (4) Paroxysmal atrial fibrillation: Plan 83 years old female with PMH of FULL CODE @ home, overweight with BMI 25.4 (height 167.6 cm; weight 71.3 kg), hyperlipidemia on rosuvastatin 5mg PO qTues and Sat @ 9:00am, HTN on amlodipine 5mg PO qhs, with history of HTN, Roderick thyroiditis, paroxysmal AFIB not on any rate-controlling or rhythm- controlling meds or long-term oral anticoagulant (e.g., eliquis, xarelto, coumadin), and Roderick thyroiditis on [place] Thyroid 90mg PO daily, who was admitted to the inpatient hospitalist service @ [facility] on 05/02/2024 with the following diagnosis: 1. Acute, comminuted fracture of the right femoral neck with 8 mm displacement (as noted on 05/02/2024, 5:27pm CT right hip without IV contrast). PLAN: 1. s/p ORIF with right short trochanteric nail with Orthopedic Surgeon Dr. Geo Cardenas on 05/03/2024, 3:55pm, followed by convalescence on 05/03/2024 - 05/04/2024, followed by anticipated D/C to [facility] @ [facility] on 05/07/2024, for short-term rehab. Patient will follow up with her PCP Dr. Carmencita Connolly within 7 days of hospital discharge and with her new Orthopedic Surgeon Dr. Geo Cardenas within 14 days of hospital discharge. Of note, patient demonstrated transient leukocytosis: cf., WBC 8.14 (05/02/2024, 5:05pm). cf., WBC 7.67 (05/03/2024, 5:45am), followed by R short trochanteric nail x 1 (05/03/2024, 3:55pm, [facility] Orthopedic Surgeon Dr. Geo Cardenas). cf., WBC 15.46 (05/04/2024, 5:47am). cf., WBC 14.49 (05/05/2024, 8:44am). cf., WBC 10.74 (05/06/2024, 9:33am). Etiology of transient leukocytosis remains unclear, but was most probably due to non-specific lymphocyte demargination in response to R short trochanteric nail x 1 (05/03/2024, 3:55pm, [facility] Orthopedic Surgeon Dr. Geo Cardenas). Hence, I have opted to observe this laboratory anomaly without further evaluation or intervention. Admission and Anticipated Discharge Date Admission Date: May 02, 2024 Subjective "I am ok. I got my right hip fixed on (05/03/2024, 3:55pm, [facility] Orthopedic Surgeon Dr. Geo Cardenas, s/p R short trochanteric nail). Review of Systems Constitutional: Positive for right hip pain s/p mechanical [id number] at home. Negative for antecedent/coincident fevers, chills, diaphoresis, shortness of breath, dyspnea on exertion, cough, wheeze, sore throat, hemoptysis, chest pains, palpitations, pleurisy, nausea, vomiting, diarrhea, abdominal pain, pelvic pain, hematemesis, hematochezia, melena, hematuria, dysuria, frequency, urgency, headaches, dizziness, lightheadedness, visual changes, hearing changes, weakness, syncope, travel history, sick contacts, or food/drug ingestions novel or new. All other review of systems are reported as negative by the patient on 05/06/2024. Physical Exam Constitutional: General: Comfortable, coherent, cooperative. Wide awake and alert. Not confused, lethargic, or obtunded. Patient speaks in complete, fluent, and articulate sentences without pause, interruption, cough, or wheeze. HEENT: Normocephalic, atraumatic. Pupils equally round and reactive to light. Extra-ocular muscles intact. No nystagmus, gaze paresis, anisocoria, miosis, mydriasis, hyphema, scleral injection, conjunctivitis, or pterygium. No rhi norrhea or otorrhea. No pharyngeal discharge or erythema. Neck: Supple with mild posterior neck tenderness (without hematoma/ecchymosis), no stridor, bruit, goiter, hepatojugular reflux. Jugular venous pressure is estimated to be 8 cm above the sternal angle of Juanjo, which is estimated to be 5 cm above the level of the right atrium. Lymph: No anterior/posterior cervical, supraclavicular/infraclavicular, axillary, epitrochlear, or inguinal adenopathy. Chest: Symmetric rise and fall with respirations. Lungs: Clear to auscultation and percussion. No audible expiratory wheeze, egophony, pectoriloquy, increase in tactile fremitus, or flatness/dullness to percussion at the bases. Heart: RRR, S1 and S2 noted. No S3 or S4 summation gallop noted. No tripartite friction rub. Grade II/ early systolic murmur @ LLSB without radiation to the carotids, axilla, or back, and which remains invariant in regards to the respiratory cycle. Abdomen: Soft, non-tender, non-distended. No rebound, guarding, Melgar's sign, or organomegaly. Bowel sounds sounds auscultated in all 4 quadrants. Extremities: No clubbing, cyanosis, or edema. 2+ pedal pulses bilaterally. RLE no longer externally rotated or foreshortened in comparison to LLE on 05/04/2024, now that patient has undergone R short trochanteric nail x 1 (05/03/2024, 3:55pm, [facility] Orthopedic Surgeon Dr. Geo Cardenas). s/p right total knee arthroplasty scar well-healed. Skin: No delay in capillary refill time > 2 seconds. No decubitus ulcer, exanthem, or enanthem. Neurology: Alert and oriented to person, place, time, and situation. DTR+ and symmetric. 5/5 motor strength in all 4 extremities, both proximally and distally. No pronator drift. No facial droop. No tremors, tics, or myoclonus. Urology: No porras catheter. No urethral discharge. Psychiatry: No suicidal ideation. No homicidal ideation. Results & Data Results & Data Vital Signs (Past 12 Hours) Vital Signs Temp Pulse Resp BP Pulse Ox O2 Del Method 05/06/24 07:08 36.5 C 69 16 157/74 H 94 Room Air Laboratory Results WBC 8.14 (05/02/2024, 5:05pm). WBC 7.67 (05/03/2024, 5:45am), followed by R short trochanteric nail x 1 (05/03/2024, 3:55pm, [facility] Orthopedic Surgeon Dr. Geo Cardenas). WBC 15.46 (05/04/2024, 5:47am). WBC 14.49 (05/05/2024, 8:44am). WBC 10.74 (05/06/2024, 9:33am). PG Care Time/CCT Total # of Minutes Spent Total Time Spent with Patient: Total time spent is greater than 50% in coordination of care (as documented) at patient's floor/unit and/or counseling patient: Coding Level of Care Code 57765 SUB INP/OBS CARE 2/35MIN Diagnoses Closed fracture of right hip with routine healing, subsequent encounter S72.001D Encounter type: subsequent encounter Fracture healing: with routine healing Hypertension I10 Roderick thyroiditis E06.3 Paroxysmal atrial fibrillation I48.0 (1) Closed right hip fracture Encounter type: subsequent encounter Fracture healing: with routine healing Qualified Code(s): S72.001D - Fracture of unspecified part of neck of right femur, subsequent encounter for closed fracture with routine healing
[2024-05-06] MEDS: diphenhydrAMINE Capsule 25 MG CAP PO PRN (21:46)
[2024-05-07 11:28] VITALS: BP 124/76; PULSE 79; RESP 16; TEMP 97.7; O2SAT 97
--- NOTE | 2024-05-07 13:47 | Discharge Summary ---
Date of Service May 07, 2024 Admission HPI Per Admitting Provider Rome Barbosa is a pleasant 83yo female with history of HTN, Roderick's thyroiditis and PAF not on anticoagulation presenting after a ground level fall at home resulting in a right femoral neck fracture. Patient is from [place] and is in town visiting her son. She was cleaning in the home today when she became tangled in a lamp cord and fell onto her right side. She had pain in her right hip and groin. She was able to contact her son and was helped off the ground within 5 minutes. She denies head trauma, LOC, no chest pain, palpitations or dizziness. Presently she is having discomfort with movement but feels fairly comfortable whilst laying still. In the ER she is afebrile, HD stable, NAD ER Course: Tylenol 1gm Ibuprofen 400mg Admission Exam (Per Admitting) Constitutional The patient is awake, alert and oriented 3, well developed and well nourished, normocephalic and atraumatic, lying in bed and in no acute distress. HEENT--PERRL, EOMI, mucous membranes and oropharynx mildly dry Neck--supple. No JVD. No bruits. Thyroid normal, trachea midline, no adenopathy. Heart--normal S1 and S2. No murmurs, rubs or gallops. Lungs--clear bilaterally, no respiratory distress, no accessory muscle use. Abdomen--normal bowel sounds and soft. Extremities--no cyanosis or clubbing. No edema. Dermatologic--normal skin turgor, normal color, no abnormal lymph nodes, no rash. Neurologic--cranial nerves II through XII grossly intact. Rheumatologic--normal range of motion. Psychiatric--normal affect. Discharge Data Consultations 05/02/24 19:28 ED Decision to Admit Stat 05/02/24 21:00 Consult Orthopedic Surgery Routine Procedures Performed Operation Date: 05/03/24 11:15 Actual Procedures p Right short Troch Nail(Right) - Geo Cardenas, Hospital Course (1) Closed right hip fracture: (2) Hypertension: (3) Roderick thyroiditis: (4) Paroxysmal atrial fibrillation: Plan 83 years old female with PMH of FULL CODE @ home, overweight with BMI 25.4 (height 167.6 cm; weight 71.3 kg), hyperlipidemia on rosuvastatin 5mg PO qTues and Sat @ 9:00am, HTN on amlodipine 5mg PO qhs, with history of HTN, Roderick thyroiditis, paroxysmal AFIB not on any rate-controlling or rhythm- controlling meds or long-term oral anticoagulant (e.g., eliquis, xarelto, coumadin), and Roderick thyroiditis on [place] Thyroid 90mg PO daily, who was admitted to the inpatient hospitalist service @ [facility] on 05/02/2024 with the following diagnosis: 1. Acute, comminuted fracture of the right femoral neck with 8 mm displacement (as noted on 05/02/2024, 5:27pm CT right hip without IV contrast). PLAN: 1. s/p ORIF with right short trochanteric nail with Orthopedic Surgeon Dr. Geo Cardenas on 05/03/2024, 3:55pm, followed by convalescence on 05/03/2024 - 05/04/2024, followed by anticipated D/C to [facility] on 05/07/2024, for short-term rehab. Patient will follow up with her PCP Dr. Carmencita Connolly within 7 days of hospital discharge and with her new Orthopedic Surgeon Dr. Geo Cardenas within 14 days of hospital discharge. Coding Level of Care Code 85467 INP/OBS DISCH >30 MIN Diagnoses Closed fracture of right hip with routine healing, subsequent encounter S72.001D Encounter type: subsequent encounter Fracture healing: with routine healing Hypertension I10 Roderick thyroiditis E06.3 Paroxysmal atrial fibrillation I48.0 Time Spent (min) 35
== END 2024-05-07 12:07 | DRG 482 ==
LOC: ED 15:49 → SUATTDRO 20:08 → EDINP 20:08 → 3E 21:00